=== PATIENT | male | born 1970 | race Caucasian/White ===

== ENCOUNTER 2021-01-17 15:37 | Emergency (ER) | payer OTHER ==
[2021-01-17 17:09] LABS: HEMOGLOBIN 14.3 gm/dl (14.0-17.5); RED BLOOD COUNT 4.67 M/UL (4.20-5.50); WHITE BLOOD COUNT 5.6 K/UL (4.5-11.0)
[2021-01-17 17:24] LABS: BUN/CREATININE RATIO 11 (0-10)
== END 2021-01-17 22:40 | disposition home or self-care (01) ==
LOC: ER1 15:37
PROVIDERS: Physician Assistant
DX: U07.1 COVID-19 (principal); J12.82 Pneumonia due to coronavirus disease 2019; Z88.0 Allergy status to penicillin
CPT/HCPCS: 71045; 80053; 85025; 99284